=== PATIENT | female | born 1995 | race African-American/Black ===

== ENCOUNTER 2017-05-07 14:45 | Emergency (ER) | payer SELFPAY ==
[~2017-05-07] VITALS: Ht 157.5 cm; Wt 56.0 kg
[2017-05-07 16:29] VITALS: BP 156/92
== END 2017-05-07 19:30 | disposition left against medical advice (07) ==
LOC: ER 16:50
DX: O24.415 Gestational diabetes mellitus in pregnancy, controlled by oral hypoglycemic drugs (principal); Z3A.20 20 weeks gestation of pregnancy; Z53.21 Procedure and treatment not carried out due to patient leaving prior to being seen by health care provider
CPT/HCPCS: 82962